=== PATIENT | male | born 1965 | race American Indian/Alaskan Native ===

== ENCOUNTER 2020-03-24 10:53 | Emergency (ER) | payer OTHER ==
[2020-03-24 11:24] VITALS: BP 128/68; PULSE 83; TEMP 98.9; BMI 22.8
== END 2020-03-24 13:59 | disposition home or self-care (01) ==
LOC: JER 10:53
DX: Z43.3 Encounter for attention to colostomy (principal)
CPT/HCPCS: 99282-25

== ENCOUNTER 2020-03-30 12:13 | Emergency (ER) | payer OTHER ==
[2020-03-30 14:13] VITALS: BP 114/75; PULSE 89; TEMP 98.6
== END 2020-03-30 14:32 | disposition home or self-care (01) ==
LOC: JER 12:13
DX: K94.03 Colostomy malfunction (principal)
CPT/HCPCS: 99282-25

== ENCOUNTER 2020-04-03 10:42 | Emergency (ER) | payer OTHER ==
[2020-04-03 11:08] VITALS: BMI 21.2
[2020-04-03 13:25] VITALS: BP 121/63; PULSE 88; TEMP 98.4
== END 2020-04-03 13:10 | disposition home or self-care (01) ==
LOC: JER 10:42
DX: Z43.3 Encounter for attention to colostomy (principal)
CPT/HCPCS: 99283-25

== ENCOUNTER 2020-04-06 11:31 | Emergency (ER) | payer OTHER ==
[2020-04-06 11:45] VITALS: BP 137/73; PULSE 90; BMI 18.7
[2020-04-06 11:46] VITALS: TEMP 98.6
== END 2020-04-06 14:20 | disposition home or self-care (01) ==
LOC: JERFT 11:31
DX: Z43.3 Encounter for attention to colostomy (principal)
CPT/HCPCS: 99283-25

== ENCOUNTER 2020-05-20 12:16 | Emergency (ER) | payer OTHER | END 2020-05-20 13:23 | disposition home or self-care (01) | LOC: JER 12:16 | DX: Z43.3 Encounter for attention to colostomy (principal) | CPT/HCPCS: 99283-25 ==